=== PATIENT | female | born 1985 | race African-American/Black ===

== ENCOUNTER 2016-06-28 08:01 | Emergency (ER) | payer OTHER ==
[~2016-06-28 08:01] MED LIST: ACET325T9 PO; ALBU8.5H6 IH; AMLO10TA4 PO; Albuterol Sulfate NEB; CIPR500T94 PO; Hydrochlorothiazide PO; LISI-334 PO; LISI10TA2 PO
[2016-06-28] MEDS ORDERED: CLONIDINE HCL 0.1 MG TABLET PO ONE (08:30)
[2016-06-28] MEDS ORDERED: PREDNISONE 20 MG TABLET PO ONE (08:30)
[2016-06-28] MEDS ORDERED: BENZONATATE 100 MG CAPSULE. PO ONE (08:30)
[2016-06-28] MEDS ORDERED: IPRATRPIUM/ALBUTEROL 0.5/2.5MG 3 ML NEBU. NEB ONE (08:30)
[2016-06-28 08:38] VITALS: BP 199/103
--- NOTE | 2016-06-28 08:40 | PHYS DOC ---
Past Medical History Past Medical History: Asthma, Hypertension, Hyperthyroid Additional Past Medical Histor: left eye cancer Past Surgical History: Other Additional Past Surgical Histo: Left Eye Alcohol Use: Occasionally Drug Use: None Adult General Chief Complaint Chief Complaint: ASTHMA HPI HPI Patient is a 31 year old female with history of hypertension, hypothyroidism, and asthma who presents today with a productive cough and nasal congestion for one week. Patient denies any fever. Patient's blood pressure is noted to be high at 200/135, she states she has history of hypertension has no PCP and does not take any medications because she has no time to see a PCP. Patient denies any chest pain or shortness of breath. Denies any headache. Patient states she stopped smoking 4 days ago. Review of Systems Review of Systems Constitutional: Denies fever or chills [] Eyes: Denies change in visual acuity, redness, or eye pain [] HENT: nasal congestion Respiratory: cough Cardiovascular: No additional information not addressed in HPI [] GI: Denies abdominal pain, nausea, vomiting, bloody stools or diarrhea [] : Denies dysuria or hematuria [] Musculoskeletal: Denies back pain or joint pain [] Integument: Denies rash or skin lesions [] Neurologic: Denies headache, focal weakness or sensory changes [] Endocrine: Denies polyuria or polydipsia [] Current Medications Current Medications Current Medications Medications (Trade) Dose Ordered Sig/Alex Start Time Stop Time Status Last Admin Dose Admin Albuterol/ Ipratropium (Duoneb) 3 ml 1X ONCE 06/28/16 08:30 06/28/16 08:32 DC 06/28/16 09:22 3 ML Benzonatate (Tessalon Perle) 200 mg 1X ONCE 06/28/16 08:30 06/28/16 08:32 DC 06/28/16 08:37 200 MG Clonidine HCl (Catapres) 0.3 mg 1X ONCE 06/28/16 08:30 06/28/16 08:31 DC 06/28/16 08:38 0.3 MG Prednisone (Prednisone) 60 mg 1X ONCE 06/28/16 08:30 06/28/16 08:32 DC 06/28/16 08:37 60 MG Allergies Allergies Allergies Coded Allergies Type Severity Reaction Last Updated Verified No Known Drug Allergies 04/28/13 No Physical Exam Physical Exam Constitutional: Well developed, well nourished, no acute distress, non-toxic appearance. [] HENT: Normocephalic, atraumatic, bilateral external ears normal, oropharynx moist, no oral exudates, patient sounds congested nasally. Eyes: PERRLA, EOMI, conjunctiva normal, no discharge. [] Neck: Normal range of motion, no tenderness, supple, no stridor. [] Cardiovascular:Heart rate regular rhythm, no murmur [] Lungs & Thorax: Bilateral breath sounds clear to auscultation [] Abdomen: Bowel sounds normal, soft, no tenderness, no masses, no pulsatile masses. [] Skin: Warm, dry, no erythema, no rash. [] Back: No tenderness, no CVA tenderness. [] Extremities: No tenderness, no cyanosis, no clubbing, ROM intact, no edema. [] Neurologic: Alert and oriented X 3, normal motor function, normal sensory function, no focal deficits noted. [] Psychologic: Affect normal, judgement normal, mood normal. [] Current Patient Data Vital Signs Vital Signs Date Time Temp Pulse Resp B/P Pulse Ox O2 Delivery O2 Flow Rate FiO2 06/28/16 09:22 97 Room Air 06/28/16 08:38 89 199/103 06/28/16 08:23 98.7 16 98.7 EKG EKG Not performed [] Course & Med Decision Making Course & Med Decision Making Pertinent Labs and Imaging studies reviewed. (See chart for details) This is a patient with history of hypertension who presents today with coughing and nasal congestion for one week. She is very congested nasally. Blood pressure 202/135, she states she has history of hypertension and does not take anything for it. She has no PCP. She has previously taken lisinopril. Patient was given a DuoNeb treatment, prednisone, Tessalon Perles, and clonidine for her BP. Her lungs are clear. Chest x-ray interpreted by radiologist is negative for any acute findings. Patient be discharged with prednisone for 4 more days, albuterol inhaler, Tessalon Perles, lisinopril which she is supposed take her blood pressure and Augmentin for 10 days. I provided this patient a clinic list as well as a doctor's list for follow-up. I highly emphasize the importance of following up with primary care doctor. Educated on the dangers of hypertension. Provided her return precautions and discharged in stable condition. Dragon Disclaimer Dragon Disclaimer This electronic medical record was generated, in whole or in part, using a voice recognition dictation system. Departure Departure Impression: Primary Impression: Malignant hypertension Additional Impressions: Acute sinusitis Acute bronchitis Disposition: 01 HOME, SELF-CARE Condition: STABLE Referrals: NO PCP (PCP) Please follow-up with a doctor from the list provided as soon as possible Patient Instructions: Acute Bronchitis, Hypertension, Sinusitis Additional Instructions: You were seen for bronchitis, sinusitis, please complete your antibiotics and take the rest of the prescribed medicines as ordered. Please consider following up with a primary care doctor for blood pressure management. Come back to the emergency room at any point symptoms worsen. Scripts Acetaminophen With Codeine (Tylenol With Codeine #3 Tablet)1 Each Tablet1 Tab PO PRN Q6HRS PRN PAIN #20 TAB Prov:SHELL ROSADO APRN 06/28/16 Amoxicillin/Potassium Clav (Augmentin 875-125 Tablet)1 Each Tablet1 Tab PO BID # 20 TAB Prov:SHELL ROSADO APRN 06/28/16 Prednisone 50 Mg Tablet1 Tab PO DAILY #4 TAB Prov:SHELL ROSADO APRN 06/28/16 Benzonatate (Tessalon Perle)100 Mg Capsule1 Cap PO TID #30 CAP Prov:SHELL ROSADO APRN 06/28/16 Albuterol Sulfate (Proair Respiclick)90 Mcg Aer.pow.ba1 Puff IH PRN Q6HRS PRN SHORTNESS OF BREATH #1 INHALER Ref 1 Prov:SHELL ROSADO APRN 06/28/16 Problem Qualifiers Additional Impressions: Acute sinusitis Sinusitis location: unspecified location Recurrence: not specified as recurrent Qualified Code: J01.90 - Acute sinusitis, unspecified Acute bronchitis Bronchitis organism: unspecified organism Qualified Code: J20.9 - Acute bronchitis, unspecified SHELL ROSADO APRN Jun 28, 2016 08:40 JAZMINE SCHUMACHER MD Jun 28, 2016 09:47
--- NOTE | 2016-06-28 08:56 | RAD ---
Two view chest History:Cough . PA and lateral views of the chest are submitted. Comparison: 09/28/2014 Findings: There is no significant infiltrate, pleural effusion, or pneumothorax. The pericardial cardiac silhouette is within normal limits in size. The trachea is in the midline. No acute osseous abnormality is identified. Impression: There is no evidence of acute cardiopulmonary disease.
[2016-06-28] MEDS ORDERED: BENZ100C PO (09:27)
[2016-06-28] MEDS ORDERED: PROAIR RESPICL90 MCG IH (09:27)
[2016-06-28] MEDS ORDERED: PRED50TA PO (09:27)
[2016-06-28] MEDS ORDERED: ACET-704 PO (09:27)
[2016-06-28] MEDS ORDERED: AMOX1TAB61 PO (09:27)
== END 2016-06-28 09:38 | disposition home or self-care (01) ==
LOC: ER 08:01
DX: I10 Essential (primary) hypertension (principal); J01.90 Acute sinusitis, unspecified; J20.9 Acute bronchitis, unspecified; J45.909 Unspecified asthma, uncomplicated; E05.90 Thyrotoxicosis, unspecified without thyrotoxic crisis or storm
CPT/HCPCS: 71020; 94640; 99284; J7512; J7620

== ENCOUNTER 2016-10-23 19:31 | Emergency (ER) | payer SELFPAY ==
[~2016-10-23] VITALS: Ht 162.6 cm; Wt 59.0 kg
[~2016-10-23 19:31] MED LIST changes: +ACET-704 PO; +AMOX1TAB61 PO; +BENZ100C PO; +PRED50TA PO; +PROAIR RESPICL90 MCG IH
[2016-10-23] MEDS ORDERED: AMLO5TAB4 PO (21:17)
--- NOTE | 2016-10-23 21:17 | PHYS DOC ---
Past Medical History Past Medical History: Asthma, Hypertension, Hyperthyroid Additional Past Medical Histor: left eye cancer Past Surgical History: Other Additional Past Surgical Histo: Left Eye Alcohol Use: Occasionally Drug Use: None Adult General Chief Complaint Chief Complaint: SORE THROAT HPI HPI Patient is a 31 year old female who presents with sore throat, rhinorrhea, nasal congestion, and myalgia for the past week. She has been taking over-the- counter cough and cold medicines such as TheraFlu, NyQuil, and DayQuil. She has taken ibuprofen intermittently. She denies taking any pain medicine today. She denies sick contacts, chest pain, dyspnea, inability to swallow or breathe, hemoptysis, leg pain or swelling, abdominal pain, nausea or vomiting, diarrhea, dysuria. Review of Systems Review of Systems Constitutional: Denies fever or chills [] Eyes: Denies change in visual acuity, redness, or eye pain [] HENT: Has nasal congestion and sore throat [] Respiratory: Denies cough or shortness of breath [] Cardiovascular: No additional information not addressed in HPI [] GI: Denies abdominal pain, nausea, vomiting, bloody stools or diarrhea [] : Denies dysuria or hematuria [] Musculoskeletal: Denies back pain or joint pain [] Integument: Denies rash or skin lesions [] Neurologic: Denies headache, focal weakness or sensory changes [] Endocrine: Denies polyuria or polydipsia [] Current Medications Current Medications Current Medications Medications (Trade) Dose Ordered Sig/Alex Start Time Stop Time Status Last Admin Dose Admin Dexamethasone (Decadron) 10 mg 1X ONCE 10/23/16 21:30 10/23/16 21:31 DC 10/23/16 21:32 10 MG Ibuprofen (Motrin) 400 mg 1X ONCE 10/23/16 21:30 10/23/16 21:31 DC 10/23/16 21:31 400 MG Allergies Allergies Allergies Coded Allergies Type Severity Reaction Last Updated Verified No Known Drug Allergies 04/28/13 No Physical Exam Physical Exam Constitutional: Well developed, well nourished, no acute distress, non-toxic appearance. [] HENT: Normocephalic, atraumatic, bilateral TMs normal, oropharynx moist, no oral exudates, nose normal. [] Eyes: PERRLA, EOMI. [] Neck: Normal range of motion, no tenderness, supple, no stridor. [] Cardiovascular:Heart rate regular rhythm [] Lungs & Thorax: Bilateral breath sounds clear to auscultation [] Abdomen: Bowel sounds normal, soft, no tenderness. [] Skin: Warm, dry, no erythema, no rash. [] Back: Normal ROM. [] Extremities: No tenderness, ROM intact, no edema. [] Neurologic: Alert and oriented X 3, normal motor function, normal sensory function, no focal deficits noted. [] Psychologic: Affect normal, judgement normal, mood normal. [] Current Patient Data Vital Signs Vital Signs Date Time Temp Pulse Resp B/P (MAP) Pulse Ox O2 Delivery O2 Flow Rate FiO2 10/23/16 21:30 68 20 226/152 (176) 96 Room Air 10/23/16 20:37 98.4 98.4 Course & Med Decision Making Course & Med Decision Making Discussed supportive care for symptoms of likely viral upper extremity infection. Discussed she needs to restart antihypertensives and follow-up with her primary care. States she has insurance now and is currently seeking PCP; she plans to call tomorrow. Return precautions given. She understands and agrees with plan. Dragon Disclaimer Dragon Disclaimer This electronic medical record was generated, in whole or in part, using a voice recognition dictation system. Departure Departure Impression: Primary Impression: Upper respiratory infection Additional Impression: Uncontrolled hypertension Disposition: 01 HOME, SELF-CARE Condition: STABLE Referrals: NO PCP (PCP) Patient Instructions: Hypertension, [id number], Upper Respiratory Infection, Adult, [id number] Additional Instructions: Take Norvasc for hypertension. Take Tylenol or ibuprofen as needed for pain. Follow-up with your primary care doctor within one week. Please call for appointment. Return for any concerns. Scripts Amlodipine Besylate (NORVASC) 5 Mg Tablet 2 TAB PO DAILY, #28 TAB 0 Refills Prov: Javed EDWARDS MD 10/23/16 Problem Qualifiers Primary Impression: Upper respiratory infection URI type: unspecified URI Qualified Codes: J06.9 - Acute upper respiratory infection, unspecified Javed EDWARDS MD Oct 23, 2016 21:17
[2016-10-23 21:30] VITALS: BP 226/152
[2016-10-23] MEDS ORDERED: IBUPROFEN 400 MG TABLET. PO ONE (21:30)
[2016-10-23] MEDS ORDERED: DEXAMETHASONE 4 MG TABLET PO ONE (21:30)
== END 2016-10-23 21:30 | disposition home or self-care (01) ==
LOC: ER 19:31
DX: J06.9 Acute upper respiratory infection, unspecified (principal); I10 Essential (primary) hypertension; J45.909 Unspecified asthma, uncomplicated; E05.90 Thyrotoxicosis, unspecified without thyrotoxic crisis or storm; Z85.840 Personal history of malignant neoplasm of eye
CPT/HCPCS: 99283; J8540

== ENCOUNTER 2017-02-09 17:07 | Emergency (ER) | payer SELFPAY ==
[~2017-02-09 17:07] MED LIST changes: +AMLO5TAB4 PO
[2017-02-09 17:37] VITALS: BP 164/121
[2017-02-09] MEDS ORDERED: AMLO5TAB4 PO (17:49)
--- NOTE | 2017-02-09 17:50 | PHYS DOC ---
Past Medical History Past Medical History: Asthma, Hypertension, Hyperthyroid Additional Past Medical Histor: left eye cancer Past Surgical History: Other Additional Past Surgical Histo: Left Eye Alcohol Use: Occasionally Drug Use: None Adult General Chief Complaint Chief Complaint: EYE PROBLEMS HPI HPI Patient is a 31 year old female presents emergency department stating that she has had irritation to her left lower eyelid. She states that she has been trying to put warm moist packs on it with no relief. She denies any drainage or discharge coming from the site. She denies any visual difficulty. Patient denies shortness of air, chest pain, headache, tinnitus any lower leg swelling. Review of Systems Review of Systems Constitutional: Denies fever or chills [] Eyes: Denies change in visual acuity, redness, or eye pain. Complaint of swelling to the left lower eyelid HENT: Denies nasal congestion or sore throat [] Respiratory: Denies cough or shortness of breath [] Cardiovascular: No additional information not addressed in HPI [] GI: Denies abdominal pain, nausea, vomiting, bloody stools or diarrhea [] : Denies dysuria or hematuria [] Musculoskeletal: Denies back pain or joint pain [] Integument: Denies rash or skin lesions [] Neurologic: Denies headache, focal weakness or sensory changes [] Endocrine: Denies polyuria or polydipsia [] Allergies Allergies Allergies Coded Allergies Type Severity Reaction Last Updated Verified No Known Drug Allergies 04/28/13 No Physical Exam Physical Exam Constitutional: Well developed, well nourished, no acute distress, non-toxic appearance. [] HENT: Normocephalic, atraumatic, bilateral external ears normal, oropharynx moist, no oral exudates, nose normal. [] Eyes: PERRLA, EOMI, conjunctiva normal, no discharge. Patient with redness and swelling to the left lower eye lid. No drainage or discharge noted from the site. Slight tenderness was noted. Neck: Normal range of motion, no tenderness, supple, no stridor. [] Cardiovascular:Heart rate regular rhythm, no murmur [] Lungs & Thorax: Bilateral breath sounds clear to auscultation [] Skin: Warm, dry, no erythema, no rash. [] Extremities: No tenderness, no cyanosis, no clubbing, ROM intact, no edema. [] Neurologic: Alert and oriented X 3, normal motor function, normal sensory function, no focal deficits noted. [] Psychologic: Affect normal, judgement normal, mood normal. [] Current Patient Data Vital Signs Vital Signs Date Time Temp Pulse Resp B/P (MAP) Pulse Ox O2 Delivery O2 Flow Rate FiO2 02/09/17 17:37 97.7 81 20 99 Room Air 97.7 EKG EKG [] Radiology/Procedures Radiology/Procedures [] Course & Med Decision Making Course & Med Decision Making Pertinent Labs and Imaging studies reviewed. (See chart for details) Patient will be discharged home in stable condition. Patient was recommended to use warm moist packs to the left eye. Patient will be provided with an mold forms builder in which she was rate instructed to follow-up within the next 2- 3 days. Signs symptoms return back to emergency primary is been provided. Patient will be discharged home in stable condition questions and concerns been answered at patient's bedside. Patient was also instructed that she needs to follow-up with the primary care physician for further evaluation of her blood pressure. Explained to her that the emergency department is not a primary care facility to provide her with further blood pressure medications. [] Dragon Disclaimer Dragon Disclaimer This electronic medical record was generated, in whole or in part, using a voice recognition dictation system. Departure Departure Impression: Primary Impression: Hordeolum internum left lower eyelid Additional Impression: Hypertension Disposition: 01 HOME, SELF-CARE Condition: STABLE Referrals: NO PCP (PCP) ISABELLA SEYMOUR MD Patient Instructions: Hypertension, Sty Additional Instructions: Activity as tolerated Warm moist packs to the left eye 4-5 times a day Followup with mold forms builder within the next 2-3 days. Return back to emergency prior signs symptoms of become worse. You need to follow-up with primary care physician in regards to your blood pressure. Your blood pressure is elevated during her visit here in the emergency department. Scripts Amlodipine Besylate (NORVASC) 5 Mg Tablet 1 TAB PO DAILY, #30 TAB 0 Refills Prov: MIRIAN RONQUILLO APRN 02/09/17 Problem Qualifiers Additional Impression: Hypertension Hypertension type: unspecified Qualified Codes: I10 - Essential (primary) hypertension MIRIAN RONQUILLO APRN Feb 09, 2017 17:50
== END 2017-02-09 18:00 | disposition home or self-care (01) ==
LOC: ER 17:07
DX: H00.025 Hordeolum internum left lower eyelid (principal); I10 Essential (primary) hypertension; E05.90 Thyrotoxicosis, unspecified without thyrotoxic crisis or storm; J45.909 Unspecified asthma, uncomplicated; Z85.840 Personal history of malignant neoplasm of eye
CPT/HCPCS: 99283

== ENCOUNTER → 2019-01-26 | Outpatient (CLI) | payer OTHER ==
--- NOTE | 2019-01-26 16:08 | KCIC ---
Indication: Left low back pain since 01/07/2019. TECHNIQUE: 3 views of the lumbar spine COMPARISON: None FINDINGS: Lumbar spine is in normal anatomic alignment. There are 5 lumbar type vertebral bodies. No compression deformity. Facet joints are in normal anatomic alignment. SI joints within normal limits. No intervertebral disc space narrowing or productive changes. IMPRESSION: No acute radiographic findings. No evidence of degenerative disc disease. Electronically signed by: Julio Brothers DO (01/26/2019 4:05 PM) [id number]
== END | disposition home or self-care (01) ==
LOC: KCIC 15:29
PROVIDERS: ATTEND Nurse Practitioner
DX: M54.5 Low back pain (principal)
CPT/HCPCS: 72100